=== PATIENT | male | born 1950 | race Caucasian/White ===

== ENCOUNTER 2019-08-22 11:28 | Emergency (ER) | payer MEDICARE ==
[~2019-08-22] VITALS: Ht 180.3 cm; Wt 76.7 kg
--- NOTE | 2019-08-22 11:55 | RAD ---
CT CODE STROKE HEAD WO History: Neuro deficits Comparison: None. Technique: Noncontrast CT imaging was performed of the head. Exposure: One or more of the following individualized dose reduction techniques were utilized for this examination: 1. Automated exposure control 2. Adjustment of the mA and/or kV according to patient size 3. Use of iterative reconstruction technique. Findings: No intracranial hemorrhage. No mass effect. No hydrocephalus. Chronic appearing bilateral small cerebellar infarcts. Chronic appearing left basal ganglia and left genu corpus callosal and periventricular frontal white matter infarcts. Moderate foci of decreased attenuation within hemispheric white matter, most often due to chronic microvascular ischemia. Focal hypoattenuation within the left posterior temporal/occipital lobe (series 2 image 13). Imaged orbits are unremarkable. Imaged paranasal sinuses and mastoid air cells are clear. Impression: 1. No acute intracranial hemorrhage. 2. Focal hyperattenuation within the left posterior temporal/occipital lobe, age indeterminant ischemia. Recommend brain MRI to further evaluate. 3. Chronic appearing bilateral cerebellar, left basal ganglia and left frontal periventricular infarcts. 4. Additional nonspecific white matter changes, most often due to chronic microvascular ischemia. FOR INTERNAL CODING PURPOSES Critical result: Findings discussed with SANCHEZ DUBOIS at 08/22/2019 11:45 AM. RESULT CODE: (C) Electronically signed by: Ang Buenrostro DO (08/22/2019 11:52 AM) [id number]
[2019-08-22] MEDS ORDERED: ASPIRIN ENTERIC COATED 325 MG TABLET.DR. PO ONE (12:00)
[2019-08-22] MEDS ORDERED: IOHEXOL 350 MG/ML 100 ML VIAL. IV ONE (12:00)
[2019-08-22 12:02] LABS: WHITE BLOOD COUNT 9.2 x10^3/uL (4.0-11.0)
[2019-08-22 12:03] LABS: HEMATOCRIT 49.9 % (39.0-53.0); HEMOGLOBIN 16.1 g/dL (13.0-17.5); MEAN CORPUSCULAR HEMOGLOBIN 29 pg (25-35); MEAN CORPUSCULAR HGB CONC 32 g/dL (31-37); MEAN CORPUSCULAR VOLUME 90 fL (79-100); PLATELET COUNT 224 x10^3/uL (140-400); RED BLOOD COUNT 5.52 x10^6/uL (4.30-5.70); RED CELL DISTRIBUTION WIDTH 12.4 % (11.5-14.5)
[2019-08-22 12:17] LABS: ALBUMIN 3.8 g/dL (3.4-5.0); CREATININE 1.3 mg/dL (0.7-1.3); GFR 54.7; POTASSIUM 4.1 mmol/L (3.5-5.1); TOTAL PROTEIN 7.8 g/dL (6.4-8.2)
--- NOTE | 2019-08-22 12:34 | PHYS DOC ---
Past History Past Medical History: No Pertinent History, Other Additional Past Medical Histor: hernia, " teeth disintegrating" Past Surgical History: No Surgical History Alcohol Use: None Drug Use: None Adult General Chief Complaint Chief Complaint: NEURO SYMPTOMS/DEFICITS [facility] Patient is a 69-year-old male who presents with complaint of difficulty with speech and lower extremity weakness with ataxia that he first noticed this morn ing when he got out of bed. He states that it one point he had woken up during the night at about 1 AM and didn't feel quite right but went back to sleep. He states that he woke up this morning he went to get out of bed to go to the bathroom but he was unable to balance on his legs and so crawled to the bathroom. He states that he also has had difficulty in formulating words and th oughts. He denies any specific lateralizing weakness.[] Review of Systems Review of Systems Constitutional: Denies fever or chills [] Eyes: Denies change in visual acuity, redness, or eye pain [] Respiratory: Denies cough or shortness of breath [] Cardiovascular: No additional information not addressed in HPI [] Musculoskeletal: Denies back pain or joint pain [] Integument: Denies rash or skin lesions [] Neurologic: Denies headache, focal weakness or sensory changes. Complains of speech deficit and ataxia. [] All other systems were reviewed and found to be within normal limits, except as documented in this note. Current Medications Current Medications Current Medications Medications (Trade) Dose Ordered Sig/Ashley Start Time Stop Time Status Last Admin Dose Admin Aspirin (Aspirin Enteric Coated) 325 mg 1X ONCE 08/22/19 12:00 08/22/19 12:01 DC Iohexol (Omnipaque 350 Mg/ml) 100 ml 1X ONCE 08/22/19 12:00 08/22/19 12:01 DC 08/22/19 12:15 100 ML Allergies Allergies Allergies Coded Allergies Type Severity Reaction Last Updated Verified Penicillins Allergy Unknown 08/22/19 Yes Physical Exam Physical Exam Constitutional: Well developed, well nourished, no acute distress, non-toxic appearance. [] HENT: Normocephalic, atraumatic, bilateral external ears normal, oropharynx moist, no oral exudates, nose normal. [] Eyes: PERRLA, EOMI, conjunctiva normal, no discharge. [] Neck: Normal range of motion, no tenderness, supple, no stridor. [] Cardiovascular:Heart rate regular rhythm, no murmur [] Lungs & Thorax: Bilateral breath sounds clear to auscultation [] Abdomen: Bowel sounds normal, soft, no tenderness, no masses, no pulsatile masses. [] Skin: Warm, dry, no erythema, no rash. [] Back: No tenderness, no CVA tenderness. [] Extremities: No tenderness, no cyanosis, no clubbing, ROM intact, no edema. [] Neurologic: Alert and oriented X 3, normal motor function, normal sensory function, no focal deficits noted. [] Psychologic: Affect normal, judgement normal, mood normal. [] Current Patient Data Vital Signs Vital Signs Date Time Temp Pulse Resp B/P (MAP) Pulse Ox O2 Delivery O2 Flow Rate FiO2 08/22/19 11:45 98.0 90 16 98 Room Air Lab Results Laboratory Tests Test 08/22/19 11:40 White Blood Count 9.2 x10^3/uL (4.0-11.0) Red Blood Count 5.52 x10^6/uL (4.30-5.70) Hemoglobin 16.1 g/dL (13.0-17.5) Hematocrit 49.9 % (39.0-53.0) Mean Corpuscular Volume 90 fL (79-100) Mean Corpuscular Hemoglobin 29 pg (25-35) Mean Corpuscular Hemoglobin Concent 32 g/dL (31-37) Red Cell Distribution Width 12.4 % (11.5-14.5) Platelet Count 224 x10^3/uL (140-400) Neutrophils (%) (Auto) % (31-73) Lymphocytes (%) (Auto) % (24-48) Monocytes (%) (Auto) % (0-9) Eosinophils (%) (Auto) % (0-3) Basophils (%) (Auto) % (0-3) Neutrophils # (Auto) x10^3uL (1.8-7.7) Lymphocytes # (Auto) x10^3/uL (1.0-4.8) Monocytes # (Auto) x10^3/uL (0.0-1.1) Eosinophils # (Auto) x10^3/uL (0.0-0.7) Basophils # (Auto) x10^3/uL (0.0-0.2) Platelet Estimate Pending Sodium Level 141 mmol/L (136-145) Potassium Level 4.1 mmol/L (3.5-5.1) Chloride Level 103 mmol/L (98-107) Carbon Dioxide Level 29 mmol/L (21-32) Anion Gap 9 (6-14) Blood Urea Nitrogen 16 mg/dL (8-26) Creatinine 1.3 mg/dL (0.7-1.3) Estimated GFR (Cockcroft-Gault) 54.7 BUN/Creatinine Ratio 12 (6-20) Glucose Level 163 mg/dL (70-99) H Calcium Level 9.0 mg/dL (8.5-10.1) Total Bilirubin 1.0 mg/dL (0.2-1.0) Aspartate Amino Transferase (AST) 15 U/L (15-37) Alanine Aminotransferase (ALT) 25 U/L (16-63) Alkaline Phosphatase 91 U/L (46-116) Troponin I Quantitative < 0.017 ng/mL (0-0.055) Total Protein 7.8 g/dL (6.4-8.2) Albumin 3.8 g/dL (3.4-5.0) Albumin/Globulin Ratio 1.0 (1.0-1.7) EKG EKG EKG demonstrates normal sinus rhythm with rate of 94.[] Radiology/Procedures Radiology/Procedures [] Impressions: PROCEDURE: CT CODE STROKE HEAD WO CT CODE STROKE HEAD WO History: Neuro deficits Comparison: None. Technique: Noncontrast CT imaging was performed of the head. Exposure: One or more of the following individualized dose reduction techniques were utilized for this examination: 1. Automated exposure control 2. Adjustment of the mA and/or kV according to patient size 3. Use of iterative reconstruction technique. Findings: No intracranial hemorrhage. No mass effect. No hydrocephalus. Chronic appearing bilateral small cerebellar infarcts. Chronic appearing left basal ganglia and left genu corpus callosal and periventricular frontal white matter infarcts. Moderate foci of decreased attenuation within hemispheric white matter, most often due to chronic microvascular ischemia. Focal hypoattenuation within the left posterior temporal/occipital lobe (series 2 image 13). Imaged orbits are unremarkable. Imaged paranasal sinuses and mastoid air cells are clear. Impression: 1. No acute intracranial hemorrhage. 2. Focal hyperattenuation within the left posterior temporal/occipital lobe, age indeterminant ischemia. Recommend brain MRI to further evaluate. 3. Chronic appearing bilateral cerebellar, left basal ganglia and left frontal periventricular infarcts. 4. Additional nonspecific white matter changes, most often due to chronic microvascular ischemia. FOR INTERNAL CODING PURPOSES Critical result: Findings discussed with SANCHEZ DUBOIS at 08/22/2019 11:45 AM. RESULT CODE: (C) Electronically signed by: Ang Fortune DO (08/22/2019 11:52 AM) [email or web address]: CT ANGIOGRAPHY HEAD AND NECK CT ANGIOGRAPHY HEAD AND NECK History: Speech difficulty and ataxia Technique: After bolus of intravenous contrast, volumetric CT data acquisition was acquired of the head and neck. Multiplanar reconstruction images to include MIP and 3-D reconstruction images are submitted. Exposure: One or more of the following individualized dose reduction techniques were utilized for this examination: 1. Automated exposure control 2. Adjustment of the mA and/or kV according to patient size 3. Use of iterative reconstruction technique. Comparison: None Any determination of stenosis is based on NASCET criteria. Head CTA: ICA: No stenosis, occlusion or aneurysm. Minimal carotid siphon atheromatous calcification. MCA: No stenosis, occlusion or aneurysm. RADHA: No stenosis, occlusion or aneurysm. Aplastic right A1 segment. CHILD DAYCARE WORKER: No stenosis, occlusion or aneurysm. origin of the right posterior cerebral artery. Basilar artery: No stenosis, occlusion or aneurysm. Distal vertebral arteries: Left vertebral artery functionally ends in PICA. CT angiogram neck: Aortic arch: Minimal plaque within the aortic arch and branch vessels. Common carotid arteries: No stenosis, occlusion or dissection. Minimal left distal common carotid artery and carotid bulb atheromatous plaque. Internal carotid arteries: No stenosis, occlusion or dissection. External carotid arteries: Patent Vertebral arteries: Congenitally small left vertebral artery. Imaged lung apices are unremarkable. Soft tissues appear normal. Bones: Multilevel cervical spondylosis. Multifocal carious dentition and periodontal disease. Impression: 1. No arterial stenosis or occlusion within the head or neck. 2. Mild scattered atheromatous disease. Electronically signed by: Ang Fortune DO (08/22/2019 12:41 PM) [email or web address] DICTATED AND SIGNED BY: ANG FORTUNE DO DATE: 08/22/19 1241 Course & Med Decision Making Course & Med Decision Making Pertinent Labs and Imaging studies reviewed. (See chart for details) [] Dragon Disclaimer Dragon Disclaimer This electronic medical record was generated, in whole or in part, using a voice recognition dictation system. Departure Departure: Impression: Primary Impression: CVA (cerebral vascular accident) Disposition: 02 XFER [facility] Admitting Physician: John Mcelroy Condition: IMPROVED Referrals: PCP,NO (PCP) Problem Qualifiers Primary Impression: CVA (cerebral vascular accident) CVA mechanism: unspecified Qualified Codes: I63.9 - Cerebral infarction, unspecified SANCHEZ DUBOIS Jr. DO Aug 22, 2019 12:34
--- NOTE | 2019-08-22 12:44 | RAD ---
CT ANGIOGRAPHY HEAD AND NECK History: Speech difficulty and ataxia Technique: After bolus of intravenous contrast, volumetric CT data acquisition was acquired of the head and neck. Multiplanar reconstruction images to include MIP and 3-D reconstruction images are submitted. Exposure: One or more of the following individualized dose reduction techniques were utilized for this examination: 1. Automated exposure control 2. Adjustment of the mA and/or kV according to patient size 3. Use of iterative reconstruction technique. Comparison: None Any determination of stenosis is based on NASCET criteria. Head CTA: ICA: No stenosis, occlusion or aneurysm. Minimal carotid siphon atheromatous calcification. MCA: No stenosis, occlusion or aneurysm. RADHA: No stenosis, occlusion or aneurysm. Aplastic right A1 segment. ELECT[employer]ICAL CONTACTS ADJUSTER: No stenosis, occlusion or aneurysm. origin of the right posterior cerebral artery. Basilar artery: No stenosis, occlusion or aneurysm. Distal vertebral arteries: Left vertebral artery functionally ends in PICA. CT angiogram neck: Aortic arch: Minimal plaque within the aortic arch and branch vessels. Common carotid arteries: No stenosis, occlusion or dissection. Minimal left distal common carotid artery and carotid bulb atheromatous plaque. Internal carotid arteries: No stenosis, occlusion or dissection. External carotid arteries: Patent Vertebral arteries: Congenitally small left vertebral artery. Imaged lung apices are unremarkable. Soft tissues appear normal. Bones: Multilevel cervical spondylosis. Multifocal carious dentition and periodontal disease. Impression: 1. No arterial stenosis or occlusion within the head or neck. 2. Mild scattered atheromatous disease. Electronically signed by: Ang Buenrostro DO (08/22/2019 12:41 PM) [email or web address]
[2019-08-22 12:45] LABS: % SEGS 73 % (35-66)
[2019-08-22 12:46] LABS: % BANDS 4 % (0-9); % BASOS 0 % (0-3); % EOS 0 % (0-5); % LYMPHS 16 % (24-48); % MONOS 7 % (0-10); PLATELET CLUMP PRESENT; PLT ESTIMATE ADEQUATE (ADEQUATE); TOXIC VACUOLATION PRESENT
[2019-08-22] MEDS ORDERED: LABETALOL 20 MG/4 ML DISP.SYRIN. IVP ONE (13:30)
[2019-08-22] MEDS ORDERED: LABETALOL 100 MG/20 ML VIAL. IV ONE (14:15)
[2019-08-22 14:56] VITALS: BP 197/112
--- NOTE | 2019-08-24 01:44 | EKG ---
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
== END 2019-08-22 15:10 | disposition short-term general hospital (02) ==
LOC: ER 11:28
DX: I63.9 Cerebral infarction, unspecified (principal); R27.0 Ataxia, unspecified; R53.1 Weakness; Z88.0 Allergy status to penicillin
CPT/HCPCS: 36415; 70450; 70496; 70498; 80053; 82947; 84484; 85007; 85025; 93005; 96374; 99285; J3490; Q9967

== ENCOUNTER 2020-06-21 17:56 | Emergency (ER) | payer MEDICARE, OTHER ==
[~2020-06-21] VITALS: Ht 180.3 cm; Wt 65.6 kg
--- NOTE | 2020-06-21 18:06 | PHYS DOC ---
Past History Past Medical History: No Pertinent History, Anxiety, Arthritis, CAD, CVA, TIA, Other Additional Past Medical Histor: hernia, " teeth disintegrating" Past Surgical History: No Surgical History Alcohol Use: None Drug Use: None General Adult HPI: HPI: "The ... made... me come in.. I feel find..the only thing... is my private parts are funny.. " Pt. . "My /./..made me come in.. but I don't ...want anything done.. I know... I may ... if I refuse treatment..' " No treatment.. No..!!!!.." Take that IV out.. ".. I don't want it.. Stop.. !!! No treatment.. !!!:". Pt. "Pt. .." He seemed to have some Rt. facial weakness" . Patient is a 70 year old male who presents with mental status change and reportedly some right facial drooping. Patient does have a history of previous CVAs/TIAs. Patient does have chronic sequela of right arm tremor from previous CVA. Patient has history of stutter and difficulty in word formation since prior CVA. Patient does have history of speech difficulty but this has not changed from previous CVA sequela. Patient is very adamant that he wants no lab work. No further work-up. Patient appears to exhibit UCAR capacity in spite of his disability from previous CVA. The patient follow-up with Dr. Real. Review of Systems: Review of Systems: Constitutional: Denies fever or chills Eyes: Denies change in visual acuity HENT: Denies nasal congestion or sore throat Respiratory: Denies cough or shortness of breath Cardiovascular: Denies chest pain or edema GI: Denies abdominal pain, nausea, vomiting, bloody stools or diarrhea : Denies dysuria Musculoskeletal: Denies back pain or joint pain Integument: Denies rash Neurologic: Denies headache, focal weakness or sensory changes Endocrine: Denies polyuria or polydipsia Lymphatic: Denies swollen glands Psychiatric: Denies depression or anxiety Heart Score: HEART Score for Chest Pain: HEART Score for Chest Pain Response (Comments) Value History Moderately Suspicious 1 ECG Nonspecific Repolarizatio 1 Age > 65 2 Risk Factors 1 or 2 Risk Factors 1 Troponin < Normal Limit 0 Total 5 Risk Factors: Risk Factors: DM, Current or recent (<one month) smoker, HTN, HLP, family history of CAD, obesity. Risk Scores: Score 0 - 3: 2.5% MACE over next 6 weeks - Discharge Home Score 4 - 6: 20.3% MACE over next 6 weeks - Admit for Clinical Observation Score 7 - 10: 72.7% MACE over next 6 weeks - Early Invasive Strategies Family History: Family History: Noncontributory to presentation Current Medications: Current Meds: See nursing for home meds Allergies: Allergies: Allergies Coded Allergies Type Severity Reaction Last Updated Verified Penicillins Allergy Unknown 08/22/19 Yes Physical Exam: PE: Constitutional: , no acute distress, non-toxic appearance. [] HENT: Normocephalic, atraumatic, bilateral external ears normal, oropharynx moist, no oral exudates, nose normal. [] Eyes: PERRLA, EOMI, conjunctiva normal, no discharge. [] Neck: Normal range of motion, no tenderness, supple, no stridor. [] Cardiovascular: Tachycardia heart rate , ill regular rhythm, no murmur, PMI to Lt. Lungs & Thorax: Bilateral breath sounds equal at apex auscultation [] Abdomen: Bowel sounds normal, soft, no tenderness, no masses, no pulsatile masses. [] Skin: Warm, dry, no erythema, no rash. Poor turgor Back: No tenderness, no CVA tenderness. [] Extremities: No tenderness, no cyanosis, no clubbing, ROM intact, no edema. [] Right-sided weakness-present since previous CVAs Neurologic: Alert and oriented X 3, normal motor function, normal sensory function, no focal deficits noted. Obvious coarse tremor in right upper extremity. Psychologic: Affect anxious, judgement appears to have UCAR capacity, mood normal. [] EKG: EKG: My interpretation EKG shows a A. fib/flutter rhythm with a ventricular rate 82 bpm. Difficult to discern for the pattern secondary to patient's tremor interference. Appears to be A. fib or a flutter. Radiology/Procedures: Radiology/Procedures: [address] [address] IMAGING REPORT Signed PATIENT: LUCINDA RONDON AACCOUNT: [id number] : 1950 LOCATION: ER AGE: 70 SEX: M EXAM STATUS: PRE ER ORD. PHYSICIAN: EVER MORA MD REASON: CODE STROKE, RIGHT SIDE PROCEDURE: PORTABLE CHEST 1V PORTABLE CHEST 1V History: Code stroke Comparison: None. Findings: Single view of the chest is submitted. There is no infiltrate, pneumothorax, or effusion. The pericardial cardiac silhouette is within normal limits in size. Impression: 1. There is no radiographic evidence of acute cardiopulmonary disease. Electronically signed by: Renzo Goff MD (06/21/2020 6:30 PM) [facility] DICTATED AND SIGNED BY: RENZO GOFF MD DATE: 06/21/201829 CC: EVER MORA MD; PCP,NO ~ Appears to have new CVA- Lt. with encephalomalacia from CT 09/01/19. [place] [address] IMAGING REPORT Signed PATIENT: LUCINDA RONDON AACCOUNT: [id number] : 1950 LOCATION: ER AGE: 70 SEX: M EXAM STATUS: PRE ER ORD. PHYSICIAN: EVER MORA MD REASON: FALL PROCEDURE: CT CERVICAL SPINE WO CONTRAST Cervical spine CT without contrast History:Fall Technique: Noncontrast CT imaging was performed of the cervical spine. Multiplanar images are reviewed. Exposure: One or more of the following individualized dose reduction techniques were utilized for this examination: 1. Automated exposure control 2. Adjustment of the mA and/or kV according to patient size 3. Use of iterative reconstruction technique. Comparison: CTA neck exam August 22, 2019 Findings: No cervical spine acute fracture is identified. Vertebral body stature is preserved. AP alignment is unchanged, negligible anterior spondylolisthesis C7-T1. There is again advanced degenerative disease C4-5, to a somewhat lesser degree C3-4, C5-6, and C6-7. There is spondylosis at the same levels with multilevel disc osteophyte complexes. There is central canal stenosis estimated about 6 mm at C4-5 and to lesser degree at C3-4, C5-6, and C6-7. Atlanto-axial distance is within normal limits. There is appropriate alignment of lateral masses of C1 relative to C2. Occipital condylar-C1 relationship is maintained. There is multilevel facet and uncovertebral degenerative change contributing to multilevel cervical neural foramina compromise. There is more significant narrowing right greater than left at C4-C5, somewhat lesser degree of narrowing bilaterally at C6-7 and left greater than right at C3-4. There is mild cervical levoscoliosis. There is mild calcified plaque of the carotid arteries in the neck. Impression: 1. No acute cervical spine fracture is identified. 2. There is again multilevel cervical degenerative disc disease and spondylosis at C3-4 through C6-7. There is also multilevel cervical spinal stenosis likely greatest at C4-5. There is multilevel cervical neural foramina compromise due to facet and uncovertebral degenerative change. Electronically signed by: Renzo Goff MD (06/21/2020 6:29 PM) [facility] DICTATED AND SIGNED BY: RENZO GOFF MD DATE: 06/21/201828 CC: EVER MORA MD; PCP,NO ~[place] [id number] IMAGING REPORT Signed PATIENT: LUCINDA RONDON AACCOUNT: [id number] : 1950 LOCATION: ER AGE: 70 SEX: M EXAM STATUS: PRE ER ORD. PHYSICIAN: EVER MORA MD REASON: RIGHT SIDE FACIAL DROOP PROCEDURE: CT CODE STROKE HEAD WO Exam: CT head INDICATION: Stroke TECHNIQUE: Sequential axial images through the head were obtained without the administration of IV contrast. Comparisons: 08/22/2019 FINDINGS: No focal parenchymal lesion or hemorrhage is identified. There is no midline shift or sulcal effacement. Chronic appearing infarct at the left frontal lobe which is new when compared to study in August 2019. No acute vascular territory infarction is identified. Rosario-white distinction is preserved. The ventricular system is within normal limits without compression hydrocephalus. The basal cisterns are well maintained. The visualized portions of the paranasal sinuses and mastoid air cells are well-pneumatized. No acute fractures. IMPRESSION: Chronic appearing infarct in the left frontal lobe which is new from 2019. A subacute component is difficult to exclude and if there remains concerns for acute ischemia MRI would better evaluate. No acute hemorrhage. Exposure: One or more of the following in the visualized dose reduction techniques were utilized for this examination: 1. Automated exposure control 2. Adjustment of the MA and/or KV according to patient size Use of iterative of reconstructive technique FOR INTERNAL CODING PURPOSES Critical result: Findings discussed with EVER MORA at 06/21/2020 6:12 PM. RESULT CODE: (C) Course & Med Decision Making: Course & Med Decision Making Pertinent Labs and Imaging studies reviewed. (See chart for details). After review with and pt. labs , CT and Chest. Pt now does not want any thing done. Discussed with and pt. Wants nothing further done. Patient very angry that paramedics had transported him to the emergency department. Patient advised that he is DNR. Discussed this with . She is aware of his prior decisions of DNR, No intubation, No shocks. No treatment to prolong life. ( States she panic when he seemed to have new facial deficits) Impression: 1. CVA/ TIA-(new interval changes from CT of 08/31. ) 2. ELEVATED LACTIC ACID 2.6 3. AFIB, AFLUTTER 4. DYSURIA 5. Marked RT sided deficits for prior CVA 6. 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 Hx DNR- wants on prolonging treatment Dragon Disclaimer: Dragon Disclaimer: This electronic medical record was generated, in whole or in part, using a voice recognition dictation system. Departure Departure: Disposition: 01 DC HOME SELF CARE/HOMELESS Condition: STABLE Referrals: PCP,NO (PCP) Marcelina Disclaimer This chart was dictated in whole or in part using Voice Recognition software in a busy, high-work load, and often noisy Emergency Department environment. It ma y contain unintended and wholly unrecognized errors or omissions. Dragon Disclaimer This chart was dictated in whole or in part using Voice Recognition software in a busy, high-work load, and often noisy Emergency Department environment. It may contain unintended and wholly unrecognized errors or omissions. EVER MORA MD Jun 21, 2020 18:05
[2020-06-21] MEDS ORDERED: IV RINGERS SOLUTION,LACTATED 1,000 ML IV SCH (18:10)
[2020-06-21] MEDS ORDERED: ASPIRIN RECTAL 300 MG SUPP. PR ONE (18:15)
--- NOTE | 2020-06-21 18:18 | RAD ---
Exam: CT head INDICATION: Stroke TECHNIQUE: Sequential axial images through the head were obtained without the administration of IV contrast. Comparisons: 08/22/2019 FINDINGS: No focal parenchymal lesion or hemorrhage is identified. There is no midline shift or sulcal effacement. Chronic appearing infarct at the left frontal lobe which is new when compared to study in August 2019. No acute vascular territory infarction is identified. Rosario-white distinction is preserved. The ventricular system is within normal limits without compression hydrocephalus. The basal cisterns are well maintained. The visualized portions of the paranasal sinuses and mastoid air cells are well-pneumatized. No acute fractures. IMPRESSION: Chronic appearing infarct in the left frontal lobe which is new from 2019. A subacute component is difficult to exclude and if there remains concerns for acute ischemia MRI would better evaluate. No acute hemorrhage. Exposure: One or more of the following in the visualized dose reduction techniques were utilized for this examination: 1. Automated exposure control 2. Adjustment of the MA and/or KV according to patient size Use of iterative of reconstructive technique FOR INTERNAL CODING PURPOSES Critical result: Findings discussed with EVER MORA at 06/21/2020 6:12 PM. RESULT CODE: (C) Electronically signed by: Frieda Nguyen MD (06/21/2020 6:16 PM) [facility]
--- NOTE | 2020-06-21 18:31 | EKG ---
[address] [address] Test Date: 2020-06-21 Test Time: 18:09:39 Pat Name: LUCINDA RONDON Department: Room: Gender: M Staff Counsel: FANG : 1950 Requested By: EVER MORA Order Number: [id number] Reading MD: Measurements Intervals [place] Rate: 82 P: SC: QRS: 86 QRSD: 100 T: 56 QT: 378 QTc: 445 Interpretive Statements ATRIAL FLUTTER T ABNORMALITY IN HIGH LATERAL LEADS INFERIOR LEADS ABNORMAL ECG RI6.02 No previous ECG available for comparison
--- NOTE | 2020-06-21 18:32 | RAD ---
Cervical spine CT without contrast History:Fall Technique: Noncontrast CT imaging was performed of the cervical spine. Multiplanar images are reviewed. Exposure: One or more of the following individualized dose reduction techniques were utilized for this examination: 1. Automated exposure control 2. Adjustment of the mA and/or kV according to patient size 3. Use of iterative reconstruction technique. Comparison: CTA neck exam August 22, 2019 Findings: No cervical spine acute fracture is identified. Vertebral body stature is preserved. AP alignment is unchanged, negligible anterior spondylolisthesis C7-T1. There is again advanced degenerative disease C4-5, to a somewhat lesser degree C3-4, C5-6, and C6-7. There is spondylosis at the same levels with multilevel disc osteophyte complexes. There is central canal stenosis estimated about 6 mm at C4-5 and to lesser degree at C3-4, C5-6, and C6-7. Atlanto-axial distance is within normal limits. There is appropriate alignment of lateral masses of C1 relative to C2. Occipital condylar-C1 relationship is maintained. There is multilevel facet and uncovertebral degenerative change contributing to multilevel cervical neural foramina compromise. There is more significant narrowing right greater than left at C4-C5, somewhat lesser degree of narrowing bilaterally at C6-7 and left greater than right at C3-4. There is mild cervical levoscoliosis. There is mild calcified plaque of the carotid arteries in the neck. Impression: 1. No acute cervical spine fracture is identified. 2. There is again multilevel cervical degenerative disc disease and spondylosis at C3-4 through C6-7. There is also multilevel cervical spinal stenosis likely greatest at C4-5. There is multilevel cervical neural foramina compromise due to facet and uncovertebral degenerative change. Electronically signed by: David Tao MD (06/21/2020 6:29 PM) [facility]
--- NOTE | 2020-06-21 18:33 | RAD ---
PORTABLE CHEST 1V History: Code stroke Comparison: None. Findings: Single view of the chest is submitted. There is no infiltrate, pneumothorax, or effusion. The pericardial cardiac silhouette is within normal limits in size. Impression: 1. There is no radiographic evidence of acute cardiopulmonary disease. Electronically signed by: David Tao MD (06/21/2020 6:30 PM) [facility]
[2020-06-21] MEDS ORDERED: ASPIRIN 325 MG TABLET PO ONE (19:00)
[2020-06-21 19:05] LABS: BASO # 0.1 x10^3/uL (0.0-0.2); BASO % 1 % (0-3); EOS # 0.1 x10^3/uL (0.0-0.7); EOS % 1 % (0-3); HEMATOCRIT 44.3 % (39.0-53.0); HEMOGLOBIN 14.7 g/dL (13.0-17.5); LYMPH # 2.2 x10^3/uL (1.0-4.8); LYMPH % 30 % (24-48); MEAN CORPUSCULAR HEMOGLOBIN 29 pg (25-35); MEAN CORPUSCULAR HGB CONC 33 g/dL (31-37); MEAN CORPUSCULAR VOLUME 88 fL (79-100); MONO # 0.7 x10^3/uL (0.0-1.1); MONO % 10 % (0-9); NEUT # 4.3 x10^3uL (1.8-7.7); NEUT % 59 % (31-73); PLATELET COUNT 270 x10^3/uL (140-400); RED BLOOD COUNT 5.02 x10^6/uL (4.30-5.70); RED CELL DISTRIBUTION WIDTH 13.1 % (11.5-14.5); WHITE BLOOD COUNT 7.4 x10^3/uL (4.0-11.0)
[2020-06-21 19:16] LABS: CALCIUM 9.6 mg/dL (8.5-10.1); CREATININE 1.2 mg/dL (0.7-1.3); GFR 59.9; POTASSIUM 3.6 mmol/L (3.5-5.1)
[2020-06-21 19:29] LABS: ALBUMIN 3.7 g/dL (3.4-5.0); C REACTIVE PROTEIN 9.2 mg/L (0-3.3); DIRECT BILIRUBIN 0.2 mg/dL (0.0-0.2); MAGNESIUM 2.2 mg/dL (1.8-2.4); TOTAL BILIRUBIN 0.5 mg/dL (0.2-1.0); TOTAL PROTEIN 7.9 g/dL (6.4-8.2)
[2020-06-21] MEDS ORDERED: ONDANSETRON PF 4 MG/2 ML VIAL. IVP PRN (19:45)
[2020-06-21] MEDS ORDERED: ACETAMINOPHEN 325 MG TABLET PO PRN (19:45)
[2020-06-21 19:46] VITALS: BP 129/69
[2020-06-21] MEDS ORDERED: IPRATRPIUM/ALBUTEROL 0.5/2.5MG 3 ML NEBU. NEB SCH (20:00)
[2020-06-21] MEDS ORDERED: IV RINGERS SOLUTION,LACTATED 1,000 ML IV ONE (20:00)
[2020-06-21] MEDS ORDERED: ENOXAPARIN ** NOTE DOSE ** SYRINGE SQ ONE (20:15)
[2020-06-22] MEDS ORDERED: ASPIRIN 325 MG TABLET PO ONE (09:00)
== END 2020-06-21 20:18 | disposition home or self-care (01) ==
LOC: ER 17:56
DX: I63.9 Cerebral infarction, unspecified (principal); R74.02 Elevation of levels of lactic acid dehydrogenase [LDH]; I48.91 Unspecified atrial fibrillation; I48.92 Unspecified atrial flutter; F80.9 Developmental disorder of speech and language, unspecified; R25.1 Tremor, unspecified; F41.9 Anxiety disorder, unspecified; R41.82 Altered mental status, unspecified; M19.90 Unspecified osteoarthritis, unspecified site; I25.10 Atherosclerotic heart disease of native coronary artery without angina pectoris; Z86.73 Personal history of transient ischemic attack (TIA), and cerebral infarction without residual deficits; Z88.0 Allergy status to penicillin
CPT/HCPCS: 36415; 70450; 71045; 72125; 80048; 80076; 82550; 82947; 83605; 83690; 83735; 83880; 84443; 84484; 85025; 85379; 85610; 85730; 86140; 87040; 93005; 96360; 99285; J7120; 96361

== ENCOUNTER 2020-07-22 22:51 | Inpatient (IN) | payer MEDICARE, OTHER ==
[~2020-07-22] VITALS: Ht 180.3 cm; Wt 67.2 kg
--- NOTE | 2020-07-22 23:21 | RAD ---
STUDY: CT head without contrast INDICATION: Code stroke. COMPARISON: Most recently on 06/21/2020 TECHNIQUE: Axial CT imaging through the head without the use of intravenous contrast. Sagittal and coronal reformats were obtained. One or more of the following individualized dose reduction techniques were utilized for this examination: 1. Automated exposure control 2. Adjustment of the mA and/or kV according to patient size 3. Use of iterative reconstruction technique. FINDINGS: No acute intracranial hemorrhage. No midline shift or hydrocephalus. Redemonstration of several chronic infarcts the largest of which involves the left paramidline frontal and parietal lobes. Scattered smaller remote infarcts involve the deep chacon nuclei and cerebellum. Background white matter findings typical of chronic microvascular ischemic change. No newly seen chacon-white matter differentiation loss is apparent. Intracranial atherosclerotic calcifications and parenchymal volume loss. Intact calvarium. IMPRESSION: 1. No acute intracranial hemorrhage or CT evidence for an acute cortical infarction. 2. Numerous remote infarcts involving the supratentorial more so than infratentorial brain. If there is ongoing concern, MRI would be more sensitive to detect a recent ischemic event. FOR INTERNAL CODING PURPOSES Critical result: Findings discussed with EVER MORA on 07/22/2020 11:06 PM. RESULT CODE: (C) Electronically signed by: BRADEN ROBLERO MD (07/22/2020 11:18 PM) [id number]
--- NOTE | 2020-07-22 23:32 | RAD ---
Exam: Chest one view INDICATION: Code stroke TECHNIQUE: Frontal view of the chest Comparisons: 06/21/2020 FINDINGS: The cardiomediastinal silhouette and pulmonary vessels are within normal limits. The lung and pleural spaces are clear. IMPRESSION: No acute cardiopulmonary process. Electronically signed by: Frieda Nguyen MD (07/22/2020 11:29 PM) [facility]
[2020-07-22 23:37] LABS: BASO # 0.1 x10^3/uL (0.0-0.2); BASO % 1 % (0-3); EOS # 0.1 x10^3/uL (0.0-0.7); EOS % 1 % (0-3); HEMATOCRIT 44.5 % (39.0-53.0); HEMOGLOBIN 14.8 g/dL (13.0-17.5); LYMPH # 2.3 x10^3/uL (1.0-4.8); LYMPH % 19 % (24-48); MEAN CORPUSCULAR HEMOGLOBIN 29 pg (25-35); MEAN CORPUSCULAR HGB CONC 33 g/dL (31-37); MEAN CORPUSCULAR VOLUME 87 fL (79-100); MONO # 1.2 x10^3/uL (0.0-1.1); MONO % 10 % (0-9); NEUT # 8.5 x10^3uL (1.8-7.7); NEUT % 70 % (31-73); PLATELET COUNT 250 x10^3/uL (140-400); RED BLOOD COUNT 5.11 x10^6/uL (4.30-5.70); RED CELL DISTRIBUTION WIDTH 13.2 % (11.5-14.5); WHITE BLOOD COUNT 12.2 x10^3/uL (4.0-11.0)
[2020-07-22 23:46] LABS: CALCIUM 9.2 mg/dL (8.5-10.1); CREATININE 1.2 mg/dL (0.7-1.3); GFR 59.9; POTASSIUM 3.9 mmol/L (3.5-5.1)
[2020-07-22 23:55] LABS: C REACTIVE PROTEIN 16.2 mg/L (0-3.3); MAGNESIUM 2.1 mg/dL (1.8-2.4)
--- NOTE | 2020-07-23 02:01 | EKG ---
[address] [address] Test Date: 2020-07-23 Test Time: 00:56:01 Pat Name: LUCINDA RONDON Department: Room: Gender: M [employer]er: BETH : 1950 Requested By: EVER MORA Order Number: [id number] Reading MD: Measurements Intervals [place] Rate: 82 P: 163 KS: 152 QRS: 70 QRSD: 96 T: 54 QT: 358 QTc: 421 Interpretive Statements SINUS RHYTHM NORMAL ECG RI6.02 No previous ECG available for comparison
--- NOTE | 2020-07-23 03:28 | PHYS DOC ---
Past History Past Medical History: No Pertinent History, Anxiety, Arthritis, CAD, CVA, TIA, Other Additional Past Medical Histor: hernia, " teeth disintegrating" Past Surgical History: No Surgical History Alcohol Use: None Drug Use: None General Adult EDM: Chief Complaint: ALTERED MENTAL STATUS HPI: HPI: ".. I am .. back... to ...normal.... for me..."..anyway..'.. My made me come." " We were just watching TV..." Patient is a 70 year old MALE who presents with hx of mental status change. Pt. had episode of more slurred speech and unable to find words. Pt. symptoms had resolved by time of arrival to ED., and was currently back to baseline for his mental status. Patient has a history of previous TIAs and CVAs. Has chronic right side weakness from previous large left sided CVA. Has chronic issue of slowed halting speech. The patient reportedly no recent changes in meds. No history of recent travel or specific ill contacts. Patient has past history of anxiety, arthritis, coronary artery disease, poor dental , HTN,, DM,, hernia repair, arthritis, cervical stenosis, history of A. fib/a flutter recurrent TIAs/CVAs. Patient is a DNR. No intubations, no shocks, no CPR. Wants focus on comfort care. May have been meds. Patient follows with Dr. Real. Patient last seen in emergency department back in June 21 for a similar presentation. does report this visit that his care is becoming beyond her capabilities. Review of Systems: Review of Systems: Constitutional: Denies fever or chills Eyes: Denies change in visual acuity HENT: Denies nasal congestion or sore throat Respiratory: Denies cough or shortness of breath Cardiovascular: Denies chest pain or edema GI: Denies abdominal pain, nausea, vomiting, bloody stools or diarrhea : Denies dysuria Musculoskeletal: Denies back pain or joint pain Integument: Denies rash Neurologic: Denies headache, focal weakness or sensory changes from his baseline. Endocrine: Denies polyuria or polydipsia Lymphatic: Denies swollen glands Psychiatric: Admits to depression or anxiety Family History: Family History: Noncontributory to presentation Current Medications: Current Meds: See nursing for home meds Allergies: Allergies: Allergies Coded Allergies Type Severity Reaction Last Updated Verified Penicillins Allergy Unknown 08/22/19 Yes Physical Exam: PE: Constitutional: no acute distress, non-toxic appearance. [] HENT: Normocephalic, atraumatic, bilateral external ears normal, oropharynx moist, no oral exudates, nose normal. Poor dentition Eyes: PERRLA, EOMI, conjunctiva normal, no discharge. [] Neck: Normal range of motion, no tenderness, supple, no stridor. [] Cardiovascular:Heart rate regular rhythm, no murmur, PMI to the left Lungs & Thorax: Bilateral breath sounds equal apex on auscultation [] Abdomen: Bowel sounds normal, soft, no tenderness, no masses, no pulsatile masses. Some urinary and stool incontinence . Diaper Skin: Warm, dry, no erythema, no rash. Poor turgor Back: No tenderness, no CVA tenderness. [] Extremities: No tenderness, no cyanosis, no clubbing, dense right-sided deficits, ankle edema. Arthritic changes. Neurologic: Alert and oriented X 3, moves extremities on request, has distal sensory, no new focal deficits noted per patient. Has dense right-sided weakness from previous large CVA. Does have slowed halting speech. Is interactive and answers questions appropriately. Mild tremor. Psychologic: Affect anxious, mood normal. [] Patient very polite. Jokes with staff. Current Patient Data: Labs: Laboratory Tests Test 07/22/20 23:02 07/22/20 23:06 07/22/20 23:07 Glucose (Fingerstick) 40 mg/dL (70-99) L 164 mg/dL (70-99) H White Blood Count 12.2 x10^3/uL (4.0-11.0) H Red Blood Count 5.11 x10^6/uL (4.30-5.70) Hemoglobin 14.8 g/dL (13.0-17.5) Hematocrit 44.5 % (39.0-53.0) Mean Corpuscular Volume 87 fL (79-100) Mean Corpuscular Hemoglobin 29 pg (25-35) Mean Corpuscular Hemoglobin Concent 33 g/dL (31-37) Red Cell Distribution Width 13.2 % (11.5-14.5) Platelet Count 250 x10^3/uL (140-400) Neutrophils (%) (Auto) 70 % (31-73) Lymphocytes (%) (Auto) 19 % (24-48) L Monocytes (%) (Auto) 10 % (0-9) H Eosinophils (%) (Auto) 1 % (0-3) Basophils (%) (Auto) 1 % (0-3) Neutrophils # (Auto) 8.5 x10^3uL (1.8-7.7) H Lymphocytes # (Auto) 2.3 x10^3/uL (1.0-4.8) Monocytes # (Auto) 1.2 x10^3/uL (0.0-1.1) H Eosinophils # (Auto) 0.1 x10^3/uL (0.0-0.7) Basophils # (Auto) 0.1 x10^3/uL (0.0-0.2) Prothrombin Time 9.9 SEC (9.4-11.4) Prothrombin Time INR 1.0 (0.9-1.1) Activated Partial Thromboplast Time 24 SEC (23-33) Sodium Level 140 mmol/L (136-145) Potassium Level 3.9 mmol/L (3.5-5.1) Chloride Level 103 mmol/L (98-107) Carbon Dioxide Level 29 mmol/L (21-32) Anion Gap 8 (6-14) Blood Urea Nitrogen 17 mg/dL (8-26) Creatinine 1.2 mg/dL (0.7-1.3) Estimated GFR (Cockcroft-Gault) 59.9 Glucose Level 157 mg/dL (70-99) H Calcium Level 9.2 mg/dL (8.5-10.1) Magnesium Level 2.1 mg/dL (1.8-2.4) Creatine Kinase 35 U/L (39-308) L Troponin I Quantitative < 0.017 ng/mL (0-0.055) C-Reactive Protein 16.2 mg/L (0-3.3) H RK-Mot-I-Type Natriuretic Peptide 295 pg/mL (0-124) H EKG: EKG: My interpretation EKG appears to be sinus rhythm rate of 82. There is a baseline artifact from tremor. [] Radiology/Procedures: Radiology/Procedures: [[address] [address] IMAGING REPORT Signed PATIENT: LUCINDA RONDON AACCOUNT: [id number] : 1950 LOCATION: ER AGE: 70 SEX: M EXAM STATUS: REG ER ORD. PHYSICIAN: EVER MORA MD REASON: CODE STROKE PROCEDURE: CT CODE STROKE HEAD WO STUDY: CT head without contrast INDICATION: Code stroke. COMPARISON: Most recently on 06/21/2020 TECHNIQUE: Axial CT imaging through the head without the use of intravenous contrast. Sagittal and coronal reformats were obtained. One or more of the following individualized dose reduction techniques were utilized for this examination: 1. Automated exposure control 2. Adjustment of the mA and/or kV according to patient size 3. Use of iterative reconstruction technique. FINDINGS: No acute intracranial hemorrhage. No midline shift or hydrocephalus. Redemonstration of several chronic infarcts the largest of which involves the left paramidline frontal and parietal lobes. Scattered smaller remote infarcts involve the deep chacon nuclei and cerebellum. Background white matter findings typical of chronic microvascular ischemic change. No newly seen chacon-white matter differentiation loss is apparent. Intracranial atherosclerotic calcifications and parenchymal volume loss. Intact calvarium. IMPRESSION: 1. No acute intracranial hemorrhage or CT evidence for an acute cortical infarction. 2. Numerous remote infarcts involving the supratentorial more so than infratentorial brain. If there is ongoing concern, MRI would be more sensitive to detect a recent ischemic event. FOR INTERNAL CODING PURPOSES Critical result: Findings discussed with EVER MORA on 07/22/2020 11:06 PM. RESULT CODE: (C) Electronically signed by: BRADEN ROBLERO MD (07/22/2020 11:18 PM) [id number] DICTATED AND SIGNED BY: BRADEN ROBLERO MD DATE: 07/22/202317 CC: EVER MORA MD; SOCO GASCA ~ ][address] [address] IMAGING REPORT Signed PATIENT: LUCINDA RONDON AACCOUNT: [id number] : 1950 LOCATION: ER AGE: 70 SEX: M EXAM STATUS: REG ER ORD. PHYSICIAN: EVER MORA MD REASON: CODE STROKE PROCEDURE: PORTABLE CHEST 1V Exam: Chest one view INDICATION: Code stroke TECHNIQUE: Frontal view of the chest Comparisons: 06/21/2020 FINDINGS: The cardiomediastinal silhouette and pulmonary vessels are within normal limits. The lung and pleural spaces are clear. IMPRESSION: No acute cardiopulmonary process. Electronically signed by: Frieda Cotto MD (07/22/2020 11:29 PM) [facility] DICTATED AND SIGNED BY: FRIEDA COTTO MD DATE: 07/22/20 3574 CC: EVER MORA MD; SOCO GASCA ~ Heart Score: HEART Score for Chest Pain: HEART Score for Chest Pain Response (Comments) Value History Slighlty/Non-Suspicious 0 ECG Normal 0 Age > 65 2 Risk Factors 1 or 2 Risk Factors 1 Troponin < Normal Limit 0 Total 3 Risk Factors: Risk Factors: DM, Current or recent (<one month) smoker, HTN, HLP, family history of CAD, obesity. Risk Scores: Score 0 - 3: 2.5% MACE over next 6 weeks - Discharge Home Score 4 - 6: 20.3% MACE over next 6 weeks - Admit for Clinical Observation Score 7 - 10: 72.7% MACE over next 6 weeks - Early Invasive Strategies Course & Med Decision Making: Course & Med Decision Making Pertinent Labs and Imaging studies reviewed. (See chart for details) Discussed presentation, testing and treatment plan with . Pt. admitted for further evaluation. Neurology consult. Pt. insistent to remain in DNR status. Social service consult- may need group home placement or increased support for his care at home. Impression: 1. TIA vs CVA 2. Mental Status Change- resolved by time of arrival 3. Mild Leukocytosis 12.2 4. DM gluc 157 5. Elevated CRP 16.2 6. DNR [] Dragon Disclaimer: Dragon Disclaimer: This electronic medical record was generated, in whole or in part, using a voice recognition dictation system. Departure Departure: Referrals: SOCO GASCA (PCP) Marcelina Disclaimer This chart was dictated in whole or in part using Voice Recognition software in a busy, high-work load, and often noisy Emergency Department environment. It may contain unintended and wholly unrecognized errors or omissions. EVER MORA MD Jul 23, 2020 03:28
[2020-07-23] MEDS ORDERED: ACETAMINOPHEN 325 MG TABLET PO PRN (03:45)
[2020-07-23] MEDS ORDERED: ONDANSETRON PF 4 MG/2 ML VIAL. IVP PRN (03:45)
[2020-07-23] MEDS ORDERED: AMLO-186 PO (04:17)
[2020-07-23] MEDS ORDERED: ATOR10TA60 PO (04:17)
[2020-07-23] MEDS ORDERED: METO-247 PO (04:17)
[2020-07-23] MEDS ORDERED: IV RINGERS SOLUTION,LACTATED 1,000 ML IV ONE (04:30)
--- NOTE | 2020-07-23 05:15 | NUR ---
Admission Note: Pt transported via EMS from ED to [facility] room 123, pt transferred from cart to bed with three person assist, VS show elevated BP, pt has no c/o n/v, pt has c/o cramping in feet which is a new pain for him (advised pt to discuss w/ when he rounds, pt agreed), pt desires to go to assisted living on discharge (advised pt would notify CM), admission documentation completed, pt oriented to room/surroundings/call light/ unit routines. Will continue to monitor. Addendum: 07/23/20 at 0623 by DIANA LEWIS RN pt has been to [facility] in the past and wishes to discharge to this particular facility.
[2020-07-23 06:48] VITALS: BP 174/122
[2020-07-23] MEDS: IPRATRPIUM/ALBUTEROL 0.5/2.5MG 3 ML NEBU. NEB SCH ×2 (08:00→11:41)
--- NOTE | 2020-07-23 09:52 | NUR ---
NSG NOTE; BEDSIDE SWALLOW EVAL SCOTT SCREEN DONE- PT HAS HX OF CVA WITH RESIDUAL EXPRESSIVE APHASIA. STATES HE IS AT BASELINE AT THIS TIME. EVAL DONE BY DR WINSLOW WHO STATED THAT IT IS ACCEPTABLE TO DO THE BESIDE SWALLOW TESTING. PT ABLE TO SWALLOW CRACKERS, APPLESAUCE AND WATER WITHOUT COUGHING OR CHOKING.
[2020-07-23 11:33] VITALS: BP 168/101
--- NOTE | 2020-07-23 12:10 | CONS ---
DATE OF CONSULTATION: 07/23/2020 NEUROLOGICAL CONSULTATION REFERRING PHYSICIAN: Dr. Mcelroy. REASON FOR CONSULTATION: Rule out TIA versus stroke. HISTORY OF PRESENT ILLNESS: This is a 70-year-old right-handed male who was admitted through Emergency Room after he presented with acute mental status changes, slurred speech and difficulty finding words. According to the patient, he has had multiple strokes in the past resulted from dense right hemiparesis with contractions of the upper and lower extremities. He stated he became confused and disoriented prior to the admission. He denies headaches, visual disturbances, nausea, vomiting, chest pain, shortness of breath or palpitation, but he complains of slow and halting speech and sometimes difficulty finding words and related that to previous multiple strokes. The last stroke was about 3-6 months ago. The patient denies falls, vertigo or dysphagia. 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 PAST SURGICAL HISTORY: Negative. FAMILY HISTORY: Noncontributory. SOCIAL HISTORY: The patient denies smoking, alcohol drinking, or illicit drug use. ALLERGIES: PENICILLIN AND SHELLFISH DERIVED. CURRENT HOME MEDICATIONS: Amlodipine 5 mg daily, Lipitor 10 mg daily, metoprolol. REVIEW OF SYSTEMS: A 10-point review of system was performed as mentioned above in history of present illness, otherwise unremarkable. PHYSICAL EXAMINATION: GENERAL: Well-developed, well-nourished male, not in acute distress. He weighs 67.2 kilos. VITAL SIGNS: Blood pressure 174/122, respiratory rate 18, pulse is 88 and regular, temperature is 98.3, oxygen saturation 97% on room air. HEENT: Normocephalic, atraumatic, otherwise unremarkable. NECK: Supple. Negative for carotid bruit, lymphadenopathy or thyromegaly. LUNGS: Clear to A and P. CARDIOVASCULAR: Regular rate and rhythm, normal S1, S2. ABDOMEN: Soft. Bowel sounds positive. EXTREMITIES: Negative for cyanosis, clubbing or edema. NEUROLOGICAL EXAM: Mental Status: The patient is alert and oriented x 3. The speech is fluent. There is no apparent language dysfunction except for finding some words and sometimes slow and halting speech. The patient recalls 2/3 immediately and 1/3 after 1 and 3 minutes. Judgment and abstracting thinking are normal. The patient denies hallucination or delusion. CRANIAL NERVES: Pupils are equal and reactive to light and accommodation. The extraocular movements are intact. There is no nystagmus. There is mild right facial asymmetry. Hearing is intact bilaterally. The palate is elevated symmetrically. Sternocleidomastoid muscles are powerful bilaterally. The patient shrugs his shoulders symmetrically and protrudes his tongue in the midline without atrophy or fasciculation. MOTOR EXAMINATION: Consistent with dense right hemiparesis with contraction at the right wrist and hand and right knee. The strength is 4/5 on the left side. SENSORY EXAMINATION: Revealed normal pinprick, light touch, vibratory and position senses. Deep tendon reflexes were symmetric and slightly hyperactive on the right side with positive Babinski. GAIT: Not tested. LABORATORY DATA: CBC revealed white blood cells of 12.2 thousand, hemoglobin 14.8, hematocrit 44.5, platelet count 250,000. Chemistry revealed sodium 140, potassium 3.9, chloride 103, CO2 of 29, BUN 17, creatinine 1.2, glucose 157, calcium 9.2. Troponin level is normal. CRP is high as 16.2. BNP is high at 295. Coagulation: PT is 9.9, INR 1. DIAGNOSTIC DATA: Chest x-ray revealed no evidence of acute cardiopulmonary process and nonenhanced head CT scan revealed evidence of large left frontal and parietal infarct with numerous small infarcts including the white matter and the cerebellum and bilateral hemispheres along with chronic small vessel ischemic changes. IMPRESSION: 1. Acute encephalopathy -- improved, etiology uncertain, probably due to cerebral hypoperfusion resulted from cerebral arteries constrictions and possible transient ischemic attack. 2. Multiple old infarcts resulted in right dense hemiparesis with contractions of the distal right upper extremity and lower extremity from the knees down. 3. Multiple risk factors for stroke including hypertension, diabetes mellitus, hyperlipidemia, history of paroxysmal atrial flutter and atrial fibrillation, coronary artery disease and transient ischemic attacks, arthritis and anxiety. RECOMMENDATIONS: 1. Treat the underlying medical conditions as hypertension, hyperlipidemia and diabetes mellitus. 2. The patient should be on antiplatelet agent. 3. Physical therapy evaluation. 4. Treat the underlying anxiety. M Silvio WINSLOW MD DR: ALBAN/sarah JOB#: [id number] / [id number]
[2020-07-23] MEDS ORDERED: amLODIPine BESYLATE 5 MG TABLET PO SCH (13:20)
--- NOTE | 2020-07-23 14:01 | HP ---
ADMIT DATE: 07/23/2020 HISTORY OF PRESENT ILLNESS: The patient is a 70-year-old right-handed male patient who was admitted to the Emergency Room where he presented with acute mental status changes with slurring of speech and difficulty finding words. According to the patient, he has had multiple strokes in the past that has resulted in dense right sided hemiparesis with contractures in his upper and lower extremities. He stated he became confused and disoriented prior to admission. He denies any headache, visual disturbances, nausea, vomiting, chest pain, shortness of breath. Did complain of slow and halting speech and sometimes has difficulty finding words and related that to previous multiple strokes, the last stroke was about 3-6 months ago. The patient denied any fall, vertigo or dysphagia. He was evaluated in the Emergency Room and he has had lab work that was mostly unremarkable except that his blood sugar when he arrived was low at 40 mg/dL. His white cell count was slightly elevated 12,200. He was admitted for further evaluation and treatment and to consult the neurologist, physical and occupational therapist. According to his , she reports that at this visit that his care is becoming beyond her capabilities and apparently she would like him to be placed in a shelter facility. 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 PAST SURGICAL HISTORY: Significant for hernia repair. ALLERGIES: HE IS ALLERGIC TO PENICILLIN, SHELLFISH, AND SHELLFISH DERIVED PRODUCTS. MEDICATIONS: He is currently on following medications: He is on atorvastatin calcium 10 mg at bedtime, metoprolol succinate 100 mg once a day, amlodipine 5 mg once a day. FAMILY HISTORY: Noncontributory. SOCIAL HISTORY: He lives with his who takes care of him. He does not smoke, drink alcohol or use any recreational drugs. REVIEW OF SYSTEMS: As per history of present illness. PHYSICAL EXAMINATION GENERAL: When I saw him, he looked well and was clearly in no apparent respiratory distress. No pallor, jaundice or cyanosis. No lymphadenopathy, no thyromegaly. No jugular venous distention. No lower limb edema. VITAL SIGNS: His heart rate was 88, blood pressure was 168/100, temperature was 98.2, respiratory rate 20, and oxygen saturation was 94% on room air. HEAD, EYES, EARS, NOSE AND THROAT: Showed normocephalic, atraumatic. NECK: Supple. HEART: Showed normal first and second heart sounds. No gallop, rub or murmur. CHEST: Clear to auscultation. No crepitation or rhonchi. ABDOMEN: Distended, soft, nontender. NEUROLOGIC: He was awake, alert, responding appropriately, continued to have difficulty finding words, has dense right sided hemiplegia with fixed flexion contraction of both right upper and right lower extremity. LABORATORY DATA: His lab work on arrival showed a white cell count of 12,200, hemoglobin 14.8, hematocrit 44, MCV 87 and platelet count 250,000 with normal manual differential. His chemistry showed a serum sodium 140, potassium 3.9, chloride 103, bicarbonate 29, anion gap of 8, BUN 17, creatinine 1.2, estimated GFR was 60 mL per minute, his glucose 157, calcium was 9.2, magnesium 2.3. CK was 35. C-reactive protein was 16.2 mg/dL. B-natriuretic peptide was 295. His prothrombin time was 9.9, INR 1, aPTT was 24. CT scan of the head showed the patient to have no acute intracranial hemorrhage. No midline shift or hydrocephalus. Redemonstration of several chronic infarcts, the largest of which involved the left paramidline, frontal and parietal lobes, scattered small remote infarct involving the deep chacon nuclei and cerebellum, background white matter findings typical of chronic microvascular ischemic changes, no newly seen chacon-white matter differentiation loss is apparent, intracranial atherosclerotic calcification and parenchymal volume loss with intact calvarium. His chest x-ray showed the cardiomediastinal silhouette and pulmonary vessels are within normal limits. The lungs and pleural spaces are clear with no acute cardiopulmonary process. ASSESSMENT: 1. The patient was admitted with questionable transient ischemic attack. He has obviously left middle cerebral artery territory infarct with right-sided hemiplegia and aphasia. 2. Hyperlipidemia. 3. Hypertension. 4. Type 2 diabetes mellitus. PLAN: To obviously continue with his current medication and I would reconcile all his medications. I will start him also on aspirin and we will consult Physical and Occupational Therapy and check his fasting lipid profile tomorrow and eventually he will require obviously placement in a shelter facility as his is unable to take care of him. TANIKA DE LA ROSA MD DR: SAI/sarah JOB#: [id number] / [id number]
[2020-07-23] MEDS: ATORVASTATIN CALCIUM 10 MG TABLET. PO SCH (14:49)
[2020-07-23] MEDS: METOPROLOL SUCC 24HR ER 50 MG TAB.ER.24H. PO SCH (14:49)
[2020-07-23 15:16] VITALS: BP 179/99
[2020-07-23] MEDS ORDERED: amLODIPine BESYLATE 5 MG TABLET PO ONE (18:15)
[2020-07-23 18:29] VITALS: BP 180/98
--- NOTE | 2020-07-23 21:15 | NUR ---
Pt's Kristen called for update on pt and also to speak directly with pt. After speaking with pt, called back to express they both would rather pt come home for a few days and interview other facilities vs pt DC to [facility]. Confirmed with pt as well.
[2020-07-24 00:29] VITALS: BP 180/95
[2020-07-24 06:13] VITALS: BP 171/89
--- NOTE | 2020-07-24 06:26 | NUR ---
Pt refusing AM lab draw. States, "no, no, no, I'm going home!"
[2020-07-24] MEDS ORDERED: ASPIRIN 325 MG TABLET PO SCH (08:00)
[2020-07-24] MEDS: ATORVASTATIN CALCIUM 10 MG TABLET. PO SCH (08:42)
[2020-07-24 08:43] VITALS: BP 171/89
[2020-07-24] MEDS: METOPROLOL SUCC 24HR ER 50 MG TAB.ER.24H. PO SCH (08:43)
[2020-07-24] MEDS ORDERED: ASPI325T11 PO (08:59)
[2020-07-24] MEDS ORDERED: amLODIPine BESYLATE 10 MG TABLET PO SCH (09:00)
--- NOTE | 2020-07-24 10:14 | NUR ---
NURSING NOTE: DISCHARGE PT DISCHARGED HOME VIA WC. PT PICKED UP BY [facility]. WRITTEN AND VERBAL DISCHARGE INSTRUCTIONS GIVEN. VERBAL UNDERSTANDING RECEIVED. NO FURTHER QUESTIONS. NO WRITTEN RX GIVEN. AARON MARES
--- NOTE | 2020-07-24 13:30 | DS ---
DATE OF DISCHARGE: 07/24/2020 ATTENDING PHYSICIAN: Dr. Mcelroy. FINAL DISCHARGE DIAGNOSES: 1. Transient ischemic attack, resolved. 2. Old stroke, left middle cerebral artery territory with right-sided hemiplegia. 3. Expressive aphasia. 4. Hyperlipidemia. 5. Essential hypertension. 6. Type 2 diabetes. HISTORY OF PRESENT ILLNESS: The patient is a 70-year-old gentleman who has had an extensive stroke in the past resulting in dense right hemiparesis and contractures of upper and lower extremities. He was confused and disoriented. Prior to admission, he had a blood sugar of 40. He was treated accordingly in the ED. He was admitted for further treatment and evaluation. The has been taking care of him at home since the stroke. PHYSICAL EXAMINATION: Please see the dictated note. PERTINENT LABORATORY AND X-RAY STUDIES: A followup CT head showed no acute intracranial hemorrhage. There are no new strokes or lesions identified. Chest x-ray was entirely clear. Hemoglobin was 14.8 g/dL with a white count of 12,000. Electrolytes, BUN and creatinine, cardiac enzymes, all within normal range. Initial sugar 40 mg/dL, repeated it was up to 157. COURSE IN THE HOSPITAL: The patient was admitted. He was seen in consultation by Neurology services. Their recommendation antiplatelet therapy with aspirin is on the chart. He did well. He was back to his baseline by the next day and his is going to take him home with plans of home health to be done after he returns. Currently, there are no changes on his medications. He was back to his baseline and even said as much. He will continue his metoprolol, Lipitor, and amlodipine doses unchanged with the addition of aspirin 325 daily. He remains a DNR per advance directives. He was discharged there from our hospital in stable condition with explicit instructions and followup care. TIA WARD MD DR: LADAN/sarah JOB#: [id number] / [id number]
--- NOTE | 2020-07-25 02:29 | PN ---
DATE: SUBJECTIVE: The patient denies any new medical or neurological complaints. He continues to have postural tremor of the right upper extremity. OBJECTIVE: GENERAL: Well-developed, well-nourished male, not in acute distress. VITAL SIGNS: Blood pressure 171/89, respiratory rate 18, pulse is 67 and regular, temperature is 97.1, oxygen saturation is 100% on room air. HEENT: Normocephalic, atraumatic, otherwise unremarkable. NECK: Supple. Negative for carotid bruit, lymphadenopathy or thyromegaly. LUNGS: Clear to A and P. CARDIOVASCULAR: Regular rate and rhythm, normal S1, S2. There is no S3, S4 or murmurs. ABDOMEN: Soft. Bowel sounds positive. EXTREMITIES: Negative for cyanosis, clubbing or edema. NEUROLOGIC EXAM: Mental Status: The patient is alert and oriented x 3. The speech is fluent. There is some halting of speech and sometimes he has difficulty finding words. He denies hallucination or delusion. Otherwise, unremarkable. Cranial nerves are intact. Motor examination revealed right hemiparesis with contraction at the right hand, at the distal right upper and lower extremities. Sensory examination revealed normal pinprick, light touch, vibratory and position senses. Deep tendon reflexes were symmetric and slightly hyperactive on the right upper and lower extremities. Gait not tested. IMPRESSION: 1. Acute encephalopathy -- improved. 2. Multiple medical problems, includes multiple strokes bilaterally, more prominent on the left hemisphere with small vessel ischemic changes. 3. Hypertension, diabetes mellitus, hyperlipidemia. RECOMMENDATIONS: 1. Continue to treat the underlying medical problems. 2. Continue with current neurological recommendations. 3. The patient should have a followup with his neurologist to treat the tremor of the right upper extremity. M Silvio WINSLOW MD DR: ALBAN/sarah JOB#: [id number] / [id number]
== END 2020-07-24 10:14 | disposition home or self-care (01) | DRG 69 ==
LOC: ER 22:51 → 1 SOUTH 07-23 03:46
PROVIDERS: ADMIT Internal Medicine; ATTEND Internal Medicine
DX: G45.9 Transient cerebral ischemic attack, unspecified (principal); G93.40 Encephalopathy, unspecified; I69.351 Hemiplegia and hemiparesis following cerebral infarction affecting right dominant side; R47.01 Aphasia; I48.92 Unspecified atrial flutter; D72.829 Elevated white blood cell count, unspecified; E11.9 Type 2 diabetes mellitus without complications; E78.5 Hyperlipidemia, unspecified; I10 Essential (primary) hypertension; I25.10 Atherosclerotic heart disease of native coronary artery without angina pectoris; I48.0 Paroxysmal atrial fibrillation; Z51.5 Encounter for palliative care; Z66 Do not resuscitate; F41.9 Anxiety disorder, unspecified; M19.90 Unspecified osteoarthritis, unspecified site; M48.02 Spinal stenosis, cervical region; Z88.0 Allergy status to penicillin; Z88.8 Allergy status to other drugs, medicaments and biological substances; Z91.013 Allergy to seafood; Z79.82 Long term (current) use of aspirin
CPT/HCPCS: 36415; 70450; 71045; 80048; 82550; 82947; 83735; 83880; 84484; 85025; 85610; 85730; 86140; 87040; 93005; 96360; J7120; 99285-25